=== PATIENT | male | born 1950 | race Caucasian/White ===

== ENCOUNTER 2016-05-02 11:08 | Emergency (ER) | payer OTHER ==
[2016-05-02 11:15] VITALS: RESP 16; O2SAT 97
[2016-05-02 11:36] LABS: COLOR YELLOW; LEUKOCYTE ESTERASE,URINE 3+ (NEGATIVE); NITRITE,URINE POSITIVE (NEGATIVE)
[2016-05-02 11:45] LABS: BACTERIA TRACE /hpf (NONE SEEN); MUCUS TRACE /lpf (NONE-1+); RBC,URINE 50-182 /hpf (0-3); WBC,URINE 50-182 /hpf (0-3)
--- NOTE | 2016-05-02 11:47 | EDPHY ---
H & P Time Seen by Provider: 05/02/16 11:22 HPI/ROS: CHIEF COMPLAINT: hematuria HISTORY OF PRESENT ILLNESS: Patient is a 66-year-old male who presents to the emergency department with hematuria. Patient was diagnosed with a rectal tumor. On 04/28/2016, the patient had a procedure to extract the tumor margins. Patient states they were able to get clean margins. He has had mild rectal bleeding since the procedure. This is not increased. He has no rectal pain. No fevers or chills. Today the patient developed hematuria and burning on urination. Patient denies any back or flank pain. No abdominal pain. Patient does concur that he had a Mccollum in place during his procedure. REVIEW OF SYSTEMS: My complete review of systems is negative except as mentioned in the HPI. Past Medical/Surgical History: Includes rectal tumor, prostate cancer Past surgical history: Includes rectal surgery Social history: The patient does not smoke. Smoking Status: Never smoked Physical Exam: Vitals noted GENERAL: Well-appearing, in no acute distress, alert. HEENT: Eyes normal to inspection, normal pharynx, no signs of dehydration. NECK: supple. Normal. RESPIRATORY: Clear to auscultation bilaterally, no rales, rhonchi or wheezing. CVS: Regular rate and rhythm, no rubs, murmurs, or gallops. ABDOMEN: Soft, nontender, nondistended, no organomegaly. Benign : Patient is circumcised. Normal appearing testicles and penis. No palpable mass or swelling. No discharge. Rectal: Patient has a normal appearing external rectum. There is no palpable fluctuance or mass. No erythema. I did not perform a rectal exam because I do not know what procedure was recently done. BACK: Normal to inspection, no CVA tenderness. SKIN: Normal color, no rash, warm, dry. No pallor. EXTREMITIES: No pedal edema, no joint swelling. NEURO/PSYCH: Alert and oriented, normal mood and affect. Constitutional: Initial Vital Signs Temperature (C) 36.6 C 05/02/16 11:11 Heart Rate 82 05/02/16 11:11 Respiratory Rate 16 05/02/16 11:11 Blood Pressure 125/77 H 05/02/16 11:11 O2 Sat (%) 97 05/02/16 11:11 O2 Delivery Mode Room Air Allergies/Adverse Reactions: ciprofloxacin [From Cipro] Allergy (Verified 12/10/15 16:24) Other-Enter Comments ciprofloxacin HCl [From Cipro] Allergy (Verified 12/10/15 16:24) Other-Enter Comments Home Medications: Medication Instructions Recorded Herbals/Supplements -Info Only 12/10/15 Simvastatin 12/10/15 Cephalexin [Keflex (*)] 500 mg PO QID 7 Days 05/02/16 Phenazopyridine HCl [Pyridium] 100 mg PO TID #6 tab 05/02/16 Medical Decision Making ED Course/Re-evaluation: I discussed the plan with the patient and answered his questions. A urine was obtained. UA: Patient has positive nitrates, leuk esterase and positive white and red cells. Patient was given Keflex 500 mg orally and Pyridium orally in the emergency department. He was given a prescription for Keflex and Pyridium. He is aware he needs close follow-up with his primary care physician. He will return with worsening symptoms. He was given warnings prior to leaving. Patient does not appear septic or toxic. Differential Diagnosis: My differential includes but is not limited to cystitis, urinary tract infection , pyelonephritis, urethral irritation, prostatitis, prostate cancer, fistula - Data Points Laboratory Results: 05/02/16 11:15 Urine Color YELLOW Urine Appearance MODERATELY TURBID Urine pH 6.0 (5.0-7.5) Ur Specific [place] 1.016 (1.002-1.030) Urine Protein 2+ H (NEGATIVE) Urine Ketones NEGATIVE (NEGATIVE) Urine Blood 3+ H (NEGATIVE) Urine Nitrate POSITIVE H (NEGATIVE) Urine Bilirubin NEGATIVE (NEGATIVE) Urine Urobilinogen NEGATIVE EU (0.2-1.0) Ur Leukocyte Esterase 3+ H (NEGATIVE) Urine RBC 50-182 H /hpf (0-3) Urine WBC 50-182 H /hpf (0-3) Ur Epithelial Cells NONE SEEN /lpf (NONE-1+) Urine Bacteria TRACE H /hpf (NONE SEEN) Urine Mucus TRACE /lpf (NONE-1+) Ur Culture Indicated? INDICATED H (NI) Urine Glucose NEGATIVE (NEGATIVE) Medications Given: Discontinued Medications Cephalexin HCl (Keflex) 500 mg PO EDNOW ONE PRN Reason: Protocol Stop: 05/02/16 11:57 Last Admin: 05/02/16 12:01 Dose: 500 mg Departure - Departure Disposition: Home, Routine, Self-Care Clinical Impression: Urinary tract infection Condition: Good Instructions: Urinary Tract Infection in Men (ED) Additional Instructions: Return with increasing pain abdominal pain, flank pain, bleeding, vomiting, fever or any other concerns. Referrals: [place],. [Primary Care Provider] - As per Instructions Prescriptions: Cephalexin [Keflex (*)] 500 mg PO QID 7 Days
[2016-05-02] MEDS ORDERED: CEPHALEXIN 500 MG CAP PO ONE (11:56)
[2016-05-02] MEDS ORDERED: PHENAZOPYRIDINE HCL 200 MG TAB PO ONE (12:02)
[2016-05-02] MEDS ORDERED: PHENAZOPYRIDINE HCL 200 MG TAB ONE (12:02)
[2016-05-02 12:14] VITALS: BP 123/75; PULSE 62; TEMP 97.9
== END 2016-05-02 12:14 | disposition home or self-care (01) ==
DX: N39.0 Urinary tract infection, site not specified (principal); B96.20 Unspecified Escherichia coli [E. coli] as the cause of diseases classified elsewhere; Z85.46 Personal history of malignant neoplasm of prostate

== ENCOUNTER 2016-05-17 19:16 | Emergency (ER) | payer OTHER ==
[2016-05-17 19:34] VITALS: BP 112/67; PULSE 57; RESP 16; TEMP 97.9; O2SAT 97
--- NOTE | 2016-05-17 20:14 | EDPHY ---
H & P Time Seen by Provider: 05/17/16 20:11 HPI/ROS: HPI: 66-year-old gentleman presents to emergency department with chief concern left index finger avulsion. Occurred 30 minutes prior to arrival when he was peeling a potato with a vegetable [place]. Located on the distal palmar surface of his left 2nd finger. No weakness, numbness, tingling. He is right-hand dominant. He is up-to-date with tetanus. ROS: Constitutional: No fever, chills Cardiovascular: No dusky, cool extremity GI: no nausea, vomiting Musculoskeletal: No decreased ROM or joint pain Neuro: No weakness, numbness, or tingling of extremities Skin: See HPI Past Medical/Surgical History: Tetanus up-to-date Smoking Status: Never smoked Physical Exam: Vital signs stable, reviewed by me General: Awake, alert, calm, cooperative. No acute distress. Head: Normalocephalic. Atraumatic. EENT: PERRLA. EOMI. CV: Distal pulses 2+ bilaterally. Brisk cap refill all extremities. Neuro: Alert. Oriented x 3. Speech clear. Sensation intact all extremities. Strength intact to resistance of flexion and extension at the PIPJ, IPJ, MCP J Skin: Skin warm, dry. There is a 1 cm skin avulsion located palmar surface, left 2nd finger distal to the DIPJ. Musculoskeletal: Strength 5+ all extremities. Range of motion intact. Constitutional: Initial Vital Signs Temperature (C) 36.6 C 05/17/16 19:31 Heart Rate 57 L 05/17/16 19:31 Respiratory Rate 16 05/17/16 19:31 Blood Pressure 112/67 05/17/16 19:31 O2 Sat (%) 97 05/17/16 19:31 O2 Delivery Mode Room Air Allergies/Adverse Reactions: cephalexin monohydrate [From Keflex] Allergy (Verified 05/17/16 19:29) ciprofloxacin [From Cipro] Allergy (Verified 12/10/15 16:24) Other-Enter Comments ciprofloxacin HCl [From Cipro] Allergy (Verified 12/10/15 16:24) Other-Enter Comments Home Medications: Medication Instructions Recorded Simvastatin 12/10/15 Cephalexin [Keflex (*)] 500 mg PO QID 7 Days 05/02/16 Medical Decision Making Procedures: After verbal consent was obtained and risks and benefits explained, the laceration was anesthetized using a digital block with a total of 4 ml of 0.5% Marcaine. Skin avulsion then irrigated per protocol by central supply technician supervisor. Under sterile procedure, the wound was explored to its base with a gloved finger and no foreign body was identified. No deep structure identified. Surgicel applied. Tube gauze dressing applied ED Course/Re-evaluation: Tetanus up-to-date Departure - Departure Disposition: Home, Routine, Self-Care Clinical Impression: Skin avulsion Condition: Good Instructions: Skin Avulsion (ED) Additional Instructions: Plan: Keep dressing in place for 48 hours Thereafter, remove and allow warm soapy water to run over site daily. Apply copious amount of antibiotic ointment and nonstick dressing. Keep covered and do this daily until it begins to heel and scab over. Light activity with the left hand until this has healed. You may use 600 mg of ibuprofen every 6 hours for fever, inflammation, or pain. Always take ibuprofen with food and stay well hydrated while taking. Do not exceed the maximum allowable dose in a 24 hour period which is 2400 mg. You may use 1000 mg of Tylenol every 8 hours. This may be staggered with the ibuprofen. Do not exceed the maximum dose in a 24 hour period which is 3 GM or 3000 mg. Keep elevated while at rest Follow up with primary care later this week for re-evaluation Referrals: MONICA BROWN [Primary Care Provider] - As per Instructions
== END 2016-05-17 20:54 | disposition home or self-care (01) ==
PROC: 3E0T3CZ (ICD-10-PCS; principal; 2016-05-17)
DX: S61.201A Unspecified open wound of left index finger without damage to nail, initial encounter (principal); W27.4XXA Contact with kitchen utensil, initial encounter